=== PATIENT | male | born 1990 | race Caucasian/White ===

== ENCOUNTER 2016-11-26 02:30 | Emergency (ER) | payer MEDICAID ==
[~2016-11-26] VITALS: Ht 182.9 cm; Wt 99.8 kg
[~2016-11-26 02:30] MED LIST: RISP0.2515 PO
[2016-11-26 02:41] VITALS: BP 147/86; PULSE 73; RESP 16; TEMP 97.8; O2SAT 98
[2016-11-26] MEDS ORDERED: KETOROLAC TROMETHAMINE 60 MG/2 ML VIAL IM ONE (03:00)
[2016-11-26 03:36] VITALS: BP 135/85; PULSE 73; RESP 16; TEMP 97.8; O2SAT 98
== END 2016-11-26 03:36 | disposition home or self-care (01) ==
LOC: SED 02:30
DX: J02.9 Acute pharyngitis, unspecified (principal); R11.2 Nausea with vomiting, unspecified; J45.909 Unspecified asthma, uncomplicated
CPT/HCPCS: 96372; 99283; J1885

== ENCOUNTER 2017-03-22 03:20 | Emergency (ER) | payer MEDICAID ==
[~2017-03-22] VITALS: Ht 182.9 cm; Wt 104.3 kg
[2017-03-22 03:25] VITALS: BP 147/75; PULSE 91; RESP 15; TEMP 99; O2SAT 98
--- NOTE | 2017-03-22 03:25 | NUR ---
Patient to ER bed 3 to gown for evaluation. Side rails up. Report given to WALTER Yanez.
--- NOTE | 2017-03-22 03:30 | NUR ---
Patient to ER C/O severe 06/02 pain d/t tooth abscess right upper molars. Patient states that he noticed the abscess 2 days ago and had no time to see a dentist being holiday . Denies fever, denies N/V. AAOx4, unlabored breathing, no signs of acute distress.
--- NOTE | 2017-03-22 03:34 | NUR ---
ER MD Lang at bedside evaluating the patient
[2017-03-22] MEDS ORDERED: KETOROLAC TROMETHAMINE 60 MG/2 ML VIAL IM ONE (04:00)
[2017-03-22] MEDS ORDERED: AMOXICILLIN 500 MG CAPSULE PO ONE (04:00)
[2017-03-22 04:30] VITALS: BP 131/74; PULSE 86; RESP 15; TEMP 98.7; O2SAT 99
--- NOTE | 2017-03-22 04:30 | NUR ---
Patient given written and verbal discharge instructions and verbalizes understanding. ER MD Lang discussed with patient the results and treatment provided. Patient in stable condition. ID arm band removed. Rx of amoxicillin given. Patient educated on pain management and to follow up with PMD. Pain Scale 0/10. Opportunity for questions provided and answered.
== END 2017-03-22 04:30 | disposition home or self-care (01) ==
LOC: SED 03:20
DX: K04.7 Periapical abscess without sinus (principal); J45.909 Unspecified asthma, uncomplicated
CPT/HCPCS: 96372; 99283; J1885